=== PATIENT | female | born 1985 | race Caucasian/White ===

== ENCOUNTER 2017-11-08 11:36 | Outpatient (CLI) | payer MEDICAID | END 2017-11-08 14:08 | disposition home or self-care (01) | LOC: OBT 11:36 → L-D 11:36 → OBT 14:08 | DX: O36.8130 Decreased fetal movements, third trimester, not applicable or unspecified (principal); Z3A.39 39 weeks gestation of pregnancy | CPT/HCPCS: 76818 ==

== ENCOUNTER 2017-11-11 01:21 | Inpatient (IN) | payer MEDICAID ==
[2017-11-11] MEDS ORDERED: IBUPROFEN 600 MG TAB PO (03:00)
[2017-11-11] MEDS ORDERED: LACTATED RINGER'S 1,000 ML IV (03:00)
[2017-11-11] MEDS ORDERED: METHYLERGONOVINE 0.2 MG INJ IM ×2 (03:00→13:00)
[2017-11-11] MEDS ORDERED: CARBOPROST 250 MCG INJ IM ×2 (03:00→13:00)
[2017-11-11] MEDS ORDERED: OXYTOCIN 30 UNITS/LR 500 ML IV ×2 (03:00→13:00)
[2017-11-11] MEDS ORDERED: MISOPROSTOL 200 MCG TAB PR ×2 (03:00→13:00)
[2017-11-11] MEDS ORDERED: LIDOCAINE 1% (MPF) 30 ML INJ INJ (03:00)
[2017-11-11] MEDS ORDERED: BUTORPHANOL 2 MG INJ IV ×2 (03:00)
[2017-11-11] MEDS ORDERED: HYDROCODONE/APAP (5/325) TAB PO (03:00)
[2017-11-11] MEDS: LACTATED RINGER'S 500 ML IV ×4 (03:30→15:00)
[2017-11-11 03:55] LABS: ADD MAN DIFF? NO
[2017-11-11 04:10] LABS: BASOPHIL # 0.1 10^3/ul (0.0-0.1); BASOPHILS % 0.9 % (0.0-2.0); EOSINOPHILS # 0.1 10^3/ul (0.0-0.5); EOSINOPHILS % 1.2 % (0.0-7.0); HEMATOCRIT 39.5 % (37.0-47.0); HEMOGLOBIN 13.4 g/dl (12.0-16.0); LYMPHOCYTES # 2.1 10^3/ul (0.8-2.9); LYMPHOCYTES % 18.5 % (15.0-51.0); MEAN CORPUSCULAR HEMOGLOBIN 29.1 pg (29.0-33.0); MEAN CORPUSCULAR HGB CONC 33.9 g/dl (32.0-37.0); MEAN CORPUSCULAR VOLUME 85.7 fl (82.0-101.0); MEAN PLATELET VOLUME 11.5 fl (7.4-10.4); MONOCYTE # 0.9 10^3/ul (0.3-0.9); MONOCYTES % 7.5 % (0.0-11.0); NEUTROPHIL # 8.2 10^3/ul (1.6-7.5); NEUTROPHILS % 71.6 % (39.0-77.0); PLATELET COUNT 277 10^3/UL (140-415); RED BLOOD COUNT 4.61 10^6/ul (4.20-5.40); RED CELL DISTRIBUTION WIDTH 13.8 % (11.5-14.5)
[2017-11-11 04:10] LABS: WHITE BLOOD COUNT 11.5 10^3/ul (4.8-10.8)
[2017-11-11 04:19] LABS: INR 0.89; PARTIAL THROMBOPLASTIN TIME 30.9 Sec (25.0-35.0); PROTIME 12.1 Sec (11.9-14.9); PT RATIO 0.9
[2017-11-11] MEDS: LACTATED RINGER'S 1,000 ML IV ×4 (04:28→08:33)
[2017-11-11] MEDS ORDERED: FENTAnyl 2MCG/ML-ROPIV 0.2% 100 ML (04:34)
[2017-11-11 04:51] LABS: HEPATITIS B SURFACE ANTIGEN NEGATIVE (NEGATIVE)
[2017-11-11] MEDS ORDERED: FENTAnyl 2MCG/ML-ROPIV 0.2% 100 ML BAG EPI (06:30)
[2017-11-11] MEDS ORDERED: NALOXONE (0.4 MG/ML) INJ IV (06:30)
[2017-11-11] MEDS ORDERED: TRIMETHOBENZAMIDE 100 MG/ML VIAL IM (06:30)
[2017-11-11] MEDS ORDERED: ONDANSETRON 4 MG INJ IV (06:30)
[2017-11-11] MEDS ORDERED: DIPHENHYDRAMINE 50 MG INJ IV (06:30)
[2017-11-11] MEDS: OXYTOCIN 30 UNITS/LR 500 ML IV ×2 (09:58→09:59)
[2017-11-11] MEDS ORDERED: ZOLPIDEM 5 MG TAB PO (13:00)
[2017-11-11] MEDS ORDERED: OXYCODONE/ASPIRIN (4.88/325) TAB PO (13:00)
[2017-11-11] MEDS: WITCH HAZEL/GLYCERIN PAD PR (13:41)
[2017-11-11] MEDS: SENNA/DOCUSATE NA (8.6MG/50MG) TAB PO ×2 (13:41→21:13)
[2017-11-11] MEDS: BENZOCAINE 20% 56 ML SPRAY TOP (13:41)
[2017-11-11] MEDS: LANOLIN 7 GM TUBE TOP (13:42)
[2017-11-11] MEDS: IBUPROFEN 600 MG TAB PO (17:42)
[2017-11-11 22:26] LABS: RAPID PLASMA REAGIN NONREACTIVE (NR)
[2017-11-12] MEDS: IBUPROFEN 600 MG TAB PO ×5 (00:02→23:58)
[2017-11-12] MEDS: SENNA/DOCUSATE NA (8.6MG/50MG) TAB PO ×2 (08:30→20:10)
[2017-11-12 09:30] LABS: ADD MAN DIFF? NO
[2017-11-12 09:36] LABS: BASOPHIL # 0.1 10^3/ul (0.0-0.1); BASOPHILS % 0.7 % (0.0-2.0); EOSINOPHILS # 0.2 10^3/ul (0.0-0.5); HEMATOCRIT 40.9 % (37.0-47.0); HEMOGLOBIN 13.4 g/dl (12.0-16.0); LYMPHOCYTES # 2.2 10^3/ul (0.8-2.9); LYMPHOCYTES % 18.3 % (15.0-51.0); MEAN CORPUSCULAR HEMOGLOBIN 28.6 pg (29.0-33.0); MEAN CORPUSCULAR HGB CONC 32.8 g/dl (32.0-37.0); MEAN CORPUSCULAR VOLUME 87.4 fl (82.0-101.0); MONOCYTES % 8.4 % (0.0-11.0); NEUTROPHIL # 8.5 10^3/ul (1.6-7.5); NEUTROPHILS % 70.2 % (39.0-77.0); PLATELET COUNT 272 10^3/UL (140-415); RED BLOOD COUNT 4.68 10^6/ul (4.20-5.40); RED CELL DISTRIBUTION WIDTH 13.8 % (11.5-14.5)
[2017-11-12 09:36] LABS: WHITE BLOOD COUNT 12.1 10^3/ul (4.8-10.8)
[2017-11-12] MEDS: WITCH HAZEL/GLYCERIN PAD PR (20:10)
[2017-11-13] MEDS: IBUPROFEN 600 MG TAB PO ×2 (05:30→11:51)
[2017-11-13] MEDS: SENNA/DOCUSATE NA (8.6MG/50MG) TAB PO (09:00)
[2017-11-13] MEDS: DIPHTH/TET/ACEL PERTUSS (ADULT) 0.5 ML VIAL IM* (11:53)
== END 2017-11-13 13:25 | disposition home or self-care (01) | DRG 775 ==
LOC: OBT 01:21 → L-D 01:23 → OBT 02:20 → L-D 02:26 → PP1 12:37
PROVIDERS: Obstetrics & Gynecology
PROC: 10E0XZZ Delivery of Products of Conception, External Approach (ICD-10-PCS; principal; 2017-11-11)
PROC: 3E033VJ Introduction of Other Hormone into Peripheral Vein, Percutaneous Approach (ICD-10-PCS; 2017-11-11)
DX: O69.81X0 Labor and delivery complicated by cord around neck, without compression, not applicable or unspecified (principal); Z37.0 Single live birth; Z3A.39 39 weeks gestation of pregnancy
CPT/HCPCS: 36415; 62319; 85025; 85610; 85730; 86592; 86900; 86901; 87340; 90715; 96360